=== PATIENT | female | born 1945 | race Two or more races ===

== ENCOUNTER 2018-02-12 22:59 | Emergency (ER) | payer MEDICARE ==
[~2018-02-12] VITALS: Ht 152.4 cm; Wt 85.3 kg
--- NOTE | 2018-02-12 23:58 | NUR ---
FAHAD MUNOZ 98% FROM HOME AOX4. COMPLAINED OF HYPERGLYCEMIA 252 MG/DL DESPITE OF TAKING METFORMIN 2 HOURS BEFORE. NO SOB OR ACUTE RESPIRATORY DISTRESS. AMBULATORY. AFEBRILE. VSS. SEEN AND EXAMINED BY [employer] APPRENTICE AT BEDSIDE. URINE COLLECTED.
[2018-02-13 00:07] LABS: APPEARANCE,URINE CLEAR (CLEAR); BILIRUBIN,URINE NEGATIVE (NEGATIVE); BLOOD, URINE NEGATIVE Ery/uL (NEGATIVE); COLOR,URINE OTHER (YELLOW); KETONES,URINE NEGATIVE (NEGATIVE); LEUKOCYTE ESTERASE ,URINE NEGATIVE (NEGATIVE); NITRITE, URINE NEGATIVE (NEGATIVE); PH,URINE 6.5 (5.0-8.0); PROTEIN,URINE NEGATIVE (NEGATIVE); UGLUCOSE NEGATIVE (NEGATIVE); UROBILINOGEN,URINE 0.2 EU/dL (0.2)
[2018-02-13 00:13] LABS: CALCIUM, SERUM 9.4 mg/dL (8.5-10.1); CARBON DIOXIDE 25 mmol/L (21-32); CHLORIDE 100 mmol/L (98-107); CREATININE 0.9 mg/dL (0.6-1.3); GLUCOSE 206 mg/dL (74-106); POTASSIUM 4.1 mmol/L (3.5-5.1); SODIUM SERUM 137 mmol/L (136-145); UREA NITROGEN, BLOOD 14 mg/dL (7-18)
[2018-02-13 01:04] VITALS: BP 135/71
--- NOTE | 2018-02-13 01:05 | NUR ---
Patient discharged to home in stable condition. Written and verbal after care instructions given. Patient verbalizes understanding of instruction. Md at bedside explained discharge instruction. patient and family aware.
== END 2018-02-13 01:04 | disposition home or self-care (01) ==
LOC: ER 23:05
DX: E11.65 Type 2 diabetes mellitus with hyperglycemia (principal); I10 Essential (primary) hypertension; E03.9 Hypothyroidism, unspecified; Z85.79 Personal history of other malignant neoplasms of lymphoid, hematopoietic and related tissues; Z96.651 Presence of right artificial knee joint
CPT/HCPCS: 36415; 80048-TC; 81000-TC; 82962-TC; A4606; J7030; Z7610